=== PATIENT | female | born 1945 | race Caucasian/White ===

== ENCOUNTER 2016-05-17 12:47 | Emergency (ER) | payer MEDICARE, OTHER ==
[~2016-05-17 12:47] MED LIST: ASPIRIN CHEWABL81 MG PO; CALCIUM CARBON600 MG PO; CARAFATE1 GM PO; CERTAGEN1 EACH PO; DIGITEK125 MCG PO; FOLIC ACID1 MG PO; IMDUR 30MG TABL30 MG PO; KLONOPIN0.5 MG PO; LEXAPRO20 MG PO; LIPITOR40 MG PO; LOPRESSOR25 MG PO; LOTREL 10-40 M1 EACH PO; LOVAZA1 GM PO; MEDROL4 M2 PO; MOVANTIK25 MG PO; NITROSTAT0.4 MG PO; OXYCONTIN30 MG PO; PERCOCET 10/321 EACH PO; PERI-COLACE TA1 EACH PO; PRILOSEC20 MG PO; REGLAN5 MG PO; RHEUMATREX2.5 MG PO; XARELTO20 MG PO
[2016-05-17 15:03] LABS: BASOPHIL 0.2 % (0-2); EOSINOPHIL 0.7 % (0-7); HCT 41.9 % (37.0-47.0); HGB 14.5 g/dl (12.5-16.0); LYMPHOCYTE 23.3 % (15-48); MCHC 34.6 g/dL (32.0-36.0); MCV 98.4 fL (78.0-100.0); MONOCYTE 9.2 % (0-12); MPV 9.6 fL (6.0-9.5); NEUTROPHIL 66.6 % (41-80); PLT 326 K/uL (150-400); RBC 4.26 M/uL (4.20-5.40); RDW 12.7 % (11.5-14.0)
[2016-05-17 15:29] LABS: POTASSIUM 4.5 mmol/L (3.5-5.1)
[2016-05-17 16:32] LABS: AMYLASE 58 U/L (28-100); LIPASE 30 U/L (13-60)
[2016-05-17 18:19] LABS: BILIRUBIN NEGATIVE (NEGATIVE); BLOOD NEGATIVE Ery/uL (NEGATIVE); CLARITY CLEAR (CLEAR); COLOR YELLOW (YELLOW); GLUCOSE (U) TRACE mg/dL (NORMAL); KETONE (U) NEGATIVE (NEGATIVE); LEUKOCYTES NEGATIVE Leu/uL (NEGATIVE); NITRITE NEGATIVE (NEGATIVE); PROTEIN NEGATIVE (NEGATIVE); SPECIFIC GRAVITY 1.015 (1.001-1.030); UROBILINOGEN 0.2 mg/dL (0.2-1.0); pH 7.5 (5.0-9.0)
== END 2016-05-17 19:19 | disposition home or self-care (01) ==
LOC: FER 12:47
PROVIDERS: Internal Medicine; Nurse Practitioner Family
DX: R10.9 Unspecified abdominal pain (principal); R11.2 Nausea with vomiting, unspecified; R19.7 Diarrhea, unspecified; I25.2 Old myocardial infarction; M41.9 Scoliosis, unspecified; M06.9 Rheumatoid arthritis, unspecified; F41.9 Anxiety disorder, unspecified; F32.9 Major depressive disorder, single episode, unspecified; Z87.891 Personal history of nicotine dependence; Z88.7 Allergy status to serum and vaccine; Z90.49 Acquired absence of other specified parts of digestive tract
CPT/HCPCS: 36415; 74000; 80048; 81003; 82150; 83690; 85025; 87339; J1170; J2405; Q9967

== ENCOUNTER 2020-03-31 11:44 | Emergency (ER) | payer MEDICARE, OTHER ==
[~2020-03-31 11:44] MED LIST changes: +CELEXA 40MG TAB40 MG PO; +CELEXA40 MG PO; +CENTRUM SILVER1 EAC1 PO; +GLIMEPIRIDE PO; +GLIMEPIRIDE4 MG PO; +HUMALOG; +IMODIUM2 MG PO; +LEFLUNOMIDE20 MG PO; +LOMOTIL1 EACH PO; +METFORMIN HCL500 MG PO; +NITROQUIK SL0.4 MG SL; +OXYCONTIN 10MG10 MG PO; +OXYCONTIN10 MG PO; -PERI-COLACE TA1 EACH PO; +PREDNISONE5 MG PO; +TOPROL XL 50 MG50 MG PO; +TRESIBA FL100 UNIT/1 SC; +TRESIVA SC; +XARELTO10 MG PO; +[UNRECOGNIZED DRUG - REMARK] PO
[2020-03-31 13:37] LABS: BASOPHIL 0.9 % (0-2); EOSINOPHIL 3.6 % (0-7); HCT 39.5 % (37.0-47.0); HGB 13.2 g/dl (12.5-16.0); LYMPHOCYTE 29.9 % (15-48); MCH 31.9 pg (25.0-31.0); MCHC 33.4 g/dL (32.0-36.0); MCV 95.4 fL (78.0-100.0); MONOCYTE 14.8 % (0-12); MPV 11.1 fL (6.0-9.5); NEUTROPHIL 50.5 % (41-80); NRBC 0; PLT 302 K/uL (150-400); RBC 4.14 M/uL (4.20-5.40); RDW 13.5 % (11.5-14.0); WBC 6.4 K/uL (4.0-10.5)
[2020-03-31 13:46] LABS: INR 1.57 (0.9-1.2); PROTHROMBIN TIME 17.8 SECONDS (11.4-13.6); PTT 26.2 SECONDS (22.2-34.7)
[2020-03-31 14:27] LABS: BILIRUBIN NEGATIVE (NEGATIVE); BLOOD NEGATIVE Ery/uL (NEGATIVE); CLARITY CLEAR (CLEAR); COLOR YELLOW (YELLOW); GLUCOSE (U) NORMAL (NORMAL); LEUKOCYTES NEGATIVE Leu/uL (NEGATIVE); NITRITE POSITIVE (NEGATIVE); PROTEIN NEGATIVE (NEGATIVE); SPECIFIC GRAVITY >=1.030 (1.001-1.030); UROBILINOGEN 0.2 mg/dL (0.2-1.0)
[2020-03-31 14:35] LABS: BACTERIA 3+; URINARY WBC RARE
[2020-03-31 15:48] LABS: BILIRUBIN - TOTAL 0.8 mg/dL (0.2-1.0); BUN/CREAT RATIO (CALC) 11.6 RATIO; CREATININE 1.38 mg/dL (0.51-0.95); GLOBULIN (CALCULATION) 3.3 g/dL; POTASSIUM 4.1 mmol/L (3.5-5.1); TOTAL PROTEIN 6.3 g/dL (6.4-8.2)
[2020-03-31 15:53] LABS: PRO-BNP 390 pg/mL (<125)
[2020-03-31] MEDS ORDERED: ONDANSETRON ODT4 MG PO (16:04)
[2020-03-31] MEDS ORDERED: CIPRO500 MG PO (16:04)
== END 2020-03-31 16:45 | disposition home or self-care (01) ==
LOC: FER 11:44
PROVIDERS: Emergency Medicine
DX: N39.0 Urinary tract infection, site not specified (principal); I12.9 Hypertensive chronic kidney disease with stage 1 through stage 4 chronic kidney disease, or unspecified chronic kidney disease; E11.22 Type 2 diabetes mellitus with diabetic chronic kidney disease; N18.9 Chronic kidney disease, unspecified; I25.2 Old myocardial infarction; E11.9 Type 2 diabetes mellitus without complications; Z86.73 Personal history of transient ischemic attack (TIA), and cerebral infarction without residual deficits; Z86.718 Personal history of other venous thrombosis and embolism; Z86.711 Personal history of pulmonary embolism; Z90.49 Acquired absence of other specified parts of digestive tract; Z79.01 Long term (current) use of anticoagulants; Z88.7 Allergy status to serum and vaccine; Z20.822 Contact with and (suspected) exposure to COVID-19
CPT/HCPCS: 36415; 36600; 71045; 80053; 81001; 82803; 83880; 84484; 85025; 85610; 85730; 87076; 87088; 87186; 93005; J0696; U0002

== ENCOUNTER 2020-12-08 13:24 | Inpatient (IN) | payer MEDICARE, OTHER ==
[~2020-12-08] VITALS: Ht 165.1 cm; Wt 88.1 kg
[~2020-12-08 13:24] MED LIST changes: +CIPRO500 MG PO; +ONDANSETRON ODT4 MG PO
[2020-12-08 13:52] LABS: BASOPHIL 0.5 % (0-2); HCT 49.2 % (37.0-47.0); HGB 15.4 g/dl (12.5-16.0); LYMPHOCYTE 32.5 % (15-48); MCHC 31.3 g/dL (32.0-36.0); MCV 102.3 fL (78.0-100.0); MPV 10.5 fL (6.0-9.5); NEUTROPHIL 56.8 % (41-80); NRBC 0; PLT 192 K/uL (150-400); RBC 4.81 M/uL (4.20-5.40); RDW 13.5 % (11.5-14.0); WBC 12.9 K/uL (4.0-10.5)
[2020-12-08 15:06] LABS: BILIRUBIN NEGATIVE (NEGATIVE); BLOOD 1+ Ery/uL (NEGATIVE); CLARITY CLOUDY (CLEAR); COLOR YELLOW (YELLOW); GLUCOSE (U) NORMAL (NORMAL); LEUKOCYTES 2+ Leu/uL (NEGATIVE); NITRITE POSITIVE (NEGATIVE); PROTEIN 2+ mg/dL (NEGATIVE); SPECIFIC GRAVITY 1.025 (1.001-1.030); UROBILINOGEN 0.2 mg/dL (0.2-1.0)
[2020-12-08 15:13] LABS: BACTERIA 3+; URINARY WBC TNTC
[2020-12-08 15:45] LABS: ALBUMIN 3.1 g/dL (3.4-5.0); BUN/CREAT RATIO (CALC) 12.5 RATIO; CREATININE 1.44 mg/dL (0.51-0.95); GLOBULIN (CALCULATION) 3.2 g/dL; POTASSIUM 4.3 mmol/L (3.5-5.1); TOTAL PROTEIN 6.3 g/dL (6.4-8.2)
[2020-12-08 16:02] LABS: LACTIC ACID 8.2 mmol/L (0.4-1.9)
[2020-12-08 16:03] LABS: CORONAVIRUS 2019 SARS-COV-2 NEGATIVE (NEGATIVE); INFLUENZA A NAA NEGATIVE (NEGATIVE)
[2020-12-08 19:15] LABS: MAGNESIUM 1.3 mg/dL (1.8-2.4)
[2020-12-09 07:46] LABS: ALBUMIN 2.6 g/dL (3.4-5.0); BASOPHIL 0.1 % (0-2); BILIRUBIN - TOTAL 0.6 mg/dL (0.2-1.0); BUN/CREAT RATIO (CALC) 15.5 RATIO; CREATININE 1.42 mg/dL (0.51-0.95); EOSINOPHIL 0 % (0-7); GLOBULIN (CALCULATION) 2.9 g/dL; HCT 33.5 % (37.0-47.0); HGB 10.9 g/dl (12.5-16.0); LYMPHOCYTE 12.7 % (15-48); MAGNESIUM 1.7 mg/dL (1.8-2.4); MCH 31.9 pg (25.0-31.0); MCHC 32.5 g/dL (32.0-36.0); MONOCYTE 7.7 % (0-12); MPV 9.9 fL (6.0-9.5); NRBC 0; PLT 200 K/uL (150-400); POTASSIUM 5.3 mmol/L (3.5-5.1); RBC 3.42 M/uL (4.20-5.40); RDW 13.6 % (11.5-14.0); TOTAL PROTEIN 5.5 g/dL (6.4-8.2); WBC 10.8 K/uL (4.0-10.5)
[2020-12-09 09:56] LABS: BUN/CREAT RATIO (CALC) 15.7 RATIO; CREATININE 1.4 mg/dL (0.51-0.95); MAGNESIUM 1.6 mg/dL (1.8-2.4); POTASSIUM 5.5 mmol/L (3.5-5.1)
[2020-12-09 13:19] LABS: BUN/CREAT RATIO (CALC) 15.9 RATIO; CREATININE 1.51 mg/dL (0.51-0.95); POTASSIUM 5.7 mmol/L (3.5-5.1)
[2020-12-09 13:26] LABS: LACTIC ACID 4.6 mmol/L (0.4-1.9)
[2020-12-09 19:54] LABS: CREATININE 1.67 mg/dL (0.51-0.95); POTASSIUM 5.1 mmol/L (3.5-5.1)
[2020-12-10 06:32] LABS: BASOPHIL 0.3 % (0-2); EOSINOPHIL 1.1 % (0-7); HCT 32.8 % (37.0-47.0); HGB 10.6 g/dl (12.5-16.0); MCH 32.1 pg (25.0-31.0); MCHC 32.3 g/dL (32.0-36.0); MCV 99.4 fL (78.0-100.0); MONOCYTE 9.1 % (0-12); NEUTROPHIL 66.9 % (41-80); NRBC 0; PLT 187 K/uL (150-400); RDW 13.7 % (11.5-14.0)
[2020-12-10 07:07] LABS: ALBUMIN 2.6 g/dL (3.4-5.0); BILIRUBIN - TOTAL 0.3 mg/dL (0.2-1.0); BUN/CREAT RATIO (CALC) 19.5 RATIO; CREATININE 1.59 mg/dL (0.51-0.95); GLOBULIN (CALCULATION) 2.6 g/dL; MAGNESIUM 1.6 mg/dL (1.8-2.4); POTASSIUM 4.7 mmol/L (3.5-5.1); TOTAL PROTEIN 5.2 g/dL (6.4-8.2)
--- NOTE | 2020-12-10 13:50 | NUR ---
12/10/20 Ms. Chi lives at home with her spouse. Her daughter assist with care. Ms. Chi has a ivis-walker, motorized wc, ramp, 3in1, and s. bench. - A referral was made to [facility]. - Please notify [facility] at [phone] if patient discharges over the weekend.
[2020-12-11 06:23] LABS: BASOPHIL 0.6 % (0-2); HCT 36.1 % (37.0-47.0); HGB 11.8 g/dl (12.5-16.0); LYMPHOCYTE 30.5 % (15-48); MCH 32.2 pg (25.0-31.0); MCHC 32.7 g/dL (32.0-36.0); MCV 98.4 fL (78.0-100.0); MONOCYTE 10.7 % (0-12); MPV 10.1 fL (6.0-9.5); NEUTROPHIL 53.8 % (41-80); NRBC 0; PLT 212 K/uL (150-400); RBC 3.67 M/uL (4.20-5.40); RDW 13.7 % (11.5-14.0)
[2020-12-11 06:49] LABS: ALBUMIN 2.7 g/dL (3.4-5.0); BILIRUBIN - TOTAL 0.4 mg/dL (0.2-1.0); BUN/CREAT RATIO (CALC) 22.5 RATIO; CREATININE 1.38 mg/dL (0.51-0.95); GLOBULIN (CALCULATION) 3.2 g/dL; MAGNESIUM 1.5 mg/dL (1.8-2.4); POTASSIUM 4.1 mmol/L (3.5-5.1); TOTAL PROTEIN 5.9 g/dL (6.4-8.2)
[2020-12-12 04:46] LABS: BASOPHIL 0.7 % (0-2); EOSINOPHIL 3.5 % (0-7); HCT 37.8 % (37.0-47.0); HGB 12.4 g/dl (12.5-16.0); LYMPHOCYTE 31.9 % (15-48); MCHC 32.8 g/dL (32.0-36.0); MCV 97.4 fL (78.0-100.0); MONOCYTE 10.1 % (0-12); MPV 10.3 fL (6.0-9.5); NEUTROPHIL 53.1 % (41-80); NRBC 0; PLT 245 K/uL (150-400); RBC 3.88 M/uL (4.20-5.40); RDW 13.6 % (11.5-14.0); WBC 9.9 K/uL (4.0-10.5)
[2020-12-12 05:10] LABS: ALBUMIN 2.7 g/dL (3.4-5.0); BILIRUBIN - TOTAL 0.5 mg/dL (0.2-1.0); BUN/CREAT RATIO (CALC) 24.1 RATIO; CREATININE 1.37 mg/dL (0.51-0.95); GLOBULIN (CALCULATION) 3.6 g/dL; MAGNESIUM 1.7 mg/dL (1.8-2.4); POTASSIUM 5.4 mmol/L (3.5-5.1); TOTAL PROTEIN 6.3 g/dL (6.4-8.2)
[2020-12-12 14:55] LABS: BUN/CREAT RATIO (CALC) 21.6 RATIO; CREATININE 1.53 mg/dL (0.51-0.95); POTASSIUM 4.5 mmol/L (3.5-5.1)
[2020-12-13 07:23] LABS: BASOPHIL 0.7 % (0-2); EOSINOPHIL 3.2 % (0-7); HCT 40.2 % (37.0-47.0); HGB 13.2 g/dl (12.5-16.0); INR 1.38 (0.9-1.2); LYMPHOCYTE 34.6 % (15-48); MCH 31.8 pg (25.0-31.0); MCHC 32.8 g/dL (32.0-36.0); MCV 96.9 fL (78.0-100.0); MONOCYTE 9.5 % (0-12); MPV 10.2 fL (6.0-9.5); NEUTROPHIL 51.7 % (41-80); NRBC 0; PLT 273 K/uL (150-400); PROTHROMBIN TIME 16.3 SECONDS (11.8-13.4); RBC 4.15 M/uL (4.20-5.40); RDW 13.5 % (11.5-14.0); WBC 11.5 K/uL (4.0-10.5)
[2020-12-13 07:37] LABS: ALBUMIN 3.1 g/dL (3.4-5.0); BILIRUBIN - TOTAL 0.7 mg/dL (0.2-1.0); BUN/CREAT RATIO (CALC) 21.6 RATIO; C-REACTIVE PROTEIN 1.2 mg/dL (<=0.90); CREATININE 1.39 mg/dL (0.51-0.95); GLOBULIN (CALCULATION) 3.2 g/dL; POTASSIUM 4.4 mmol/L (3.5-5.1); TOTAL PROTEIN 6.3 g/dL (6.4-8.2)
[2020-12-13] MEDS ORDERED: MAG-OXIDE 400M400 MG PO (11:54)
[2020-12-13] MEDS ORDERED: ELIQUIS5 MG PO (11:54)
[2020-12-13] MEDS ORDERED: ZYVOX600 MG PO (11:54)
--- NOTE | 2020-12-13 12:11 | NUR ---
12/13/20 [facility] was notified of patient's discharge. Pt is no longer requiring 02. - Report given to VIDYA Preston RN.
== END 2020-12-13 12:45 | disposition home health service (06) | DRG 871 ==
LOC: FER 13:24 → FTCU 18:51
PROVIDERS: Internal Medicine; Internal Medicine Cardiovascular Disease; ADMIT Family Medicine
DX: A40.8 Other streptococcal sepsis (principal); J96.01 Acute respiratory failure with hypoxia; I50.33 Acute on chronic diastolic (congestive) heart failure; N39.0 Urinary tract infection, site not specified; I13.0 Hypertensive heart and chronic kidney disease with heart failure and stage 1 through stage 4 chronic kidney disease, or unspecified chronic kidney disease; I69.351 Hemiplegia and hemiparesis following cerebral infarction affecting right dominant side; G93.40 Encephalopathy, unspecified; R65.20 Severe sepsis without septic shock; Z20.822 Contact with and (suspected) exposure to COVID-19; E11.22 Type 2 diabetes mellitus with diabetic chronic kidney disease; N18.30 Chronic kidney disease, stage 3 unspecified; E11.65 Type 2 diabetes mellitus with hyperglycemia; M06.9 Rheumatoid arthritis, unspecified; E78.5 Hyperlipidemia, unspecified; I48.91 Unspecified atrial fibrillation; I48.0 Paroxysmal atrial fibrillation; E87.5 Hyperkalemia; E83.42 Hypomagnesemia; I95.9 Hypotension, unspecified; Z79.01 Long term (current) use of anticoagulants; Z79.84 Long term (current) use of oral hypoglycemic drugs; Z79.899 Other long term (current) drug therapy; I25.2 Old myocardial infarction; Z86.711 Personal history of pulmonary embolism; Z90.89 Acquired absence of other organs; Z90.710 Acquired absence of both cervix and uterus; Z90.49 Acquired absence of other specified parts of digestive tract; Z93.2 Ileostomy status; I69.322 Dysarthria following cerebral infarction
CPT/HCPCS: 36415; 36600; 70450; 71045; 80048; 80053; 80162; 80202; 81001; 82009; 82803; 82962; 83605; 83690; 83735; 83880; 84145; 84443; 84484; 85025; 85379; 85610; 86140; 87040; 87076; 87077; 87088; 87186; 93005; 94010; 97110; 97163; 97166; 97530; 97530-GP; 97535; J0282; J0696; J1100; J1815; J1940; J3370; J3475; J7030; J7050; J7060; J7120; J7512; U0002

== ENCOUNTER 2021-03-05 14:47 | Emergency (ER) | payer MEDICARE, OTHER ==
[~2021-03-05 14:47] MED LIST changes: +ELIQUIS5 MG PO; +MAG-OXIDE 400M400 MG PO; +ZYVOX600 MG PO
[2021-03-05 15:35] LABS: BASOPHIL 0.6 % (0-2); EOSINOPHIL 2.8 % (0-7); HCT 42.2 % (37.0-47.0); HGB 13.7 g/dl (12.5-16.0); MCH 31.4 pg (25.0-31.0); MCHC 32.5 g/dL (32.0-36.0); MCV 96.8 fL (78.0-100.0); MONOCYTE 7.9 % (0-12); MPV 10.3 fL (6.0-9.5); NEUTROPHIL 57.2 % (41-80); NRBC 0; PLT 315 K/uL (150-400); RBC 4.36 M/uL (4.20-5.40); RDW 14.1 % (11.5-14.0); WBC 6.3 K/uL (4.0-10.5)
[2021-03-05 15:54] LABS: CREATININE 7.2 mg/dL (0.51-0.95); POTASSIUM 5.4 mmol/L (3.5-5.1)
[2021-03-05 19:19] LABS: CORONAVIRUS 2019 SARS-COV-2 NEGATIVE (NEGATIVE); INFLUENZA A NAA NEGATIVE (NEGATIVE)
[2021-03-05 22:08] LABS: BILIRUBIN NEGATIVE (NEGATIVE); BLOOD TRACE-INTACT Ery/uL (NEGATIVE); CLARITY CLEAR (CLEAR); COLOR YELLOW (YELLOW); GLUCOSE (U) TRACE mg/dL (NORMAL); LEUKOCYTES 2+ Leu/uL (NEGATIVE); NITRITE NEGATIVE (NEGATIVE); PROTEIN NEGATIVE (NEGATIVE); SPECIFIC GRAVITY 1.015 (1.001-1.030); UROBILINOGEN 0.2 mg/dL (0.2-1.0); pH 5.5 (5.0-9.0)
[2021-03-05 22:16] LABS: BACTERIA 2+; URINARY WBC TNTC; YEAST PRESENT
[2021-03-06 02:33] LABS: BUN/CREAT RATIO (CALC) 11.8 RATIO; CREATININE 6.2 mg/dL (0.51-0.95); POTASSIUM 4.6 mmol/L (3.5-5.1)
== END 2021-03-06 03:40 | disposition other institution (70) ==
LOC: FER 14:47
PROVIDERS: Emergency Medicine Emergency Medical Services; Internal Medicine
DX: N17.9 Acute kidney failure, unspecified (principal); I12.9 Hypertensive chronic kidney disease with stage 1 through stage 4 chronic kidney disease, or unspecified chronic kidney disease; E11.22 Type 2 diabetes mellitus with diabetic chronic kidney disease; N18.30 Chronic kidney disease, stage 3 unspecified; E11.649 Type 2 diabetes mellitus with hypoglycemia without coma; E87.5 Hyperkalemia; N30.00 Acute cystitis without hematuria; Z20.822 Contact with and (suspected) exposure to COVID-19; Z88.7 Allergy status to serum and vaccine
CPT/HCPCS: 36415; 71045; 71250; 80048; 81001; 83605; 84145; 84484; 85025; 87088; 93005; J0696; J7030; U0002

== ENCOUNTER 2021-09-05 05:39 | Emergency (ER) | payer MEDICARE, OTHER ==
[2021-09-05 06:40] LABS: BASOPHIL 1.1 % (0-2); EOSINOPHIL 3.4 % (0-7); HCT 46.3 % (37.0-47.0); HGB 14.9 g/dl (12.5-16.0); LYMPHOCYTE 36.3 % (15-48); MCH 30.9 pg (25.0-31.0); MCHC 32.2 g/dL (32.0-36.0); MCV 96.1 fL (78.0-100.0); MONOCYTE 11.5 % (0-12); MPV 9.9 fL (6.0-9.5); NEUTROPHIL 47.2 % (41-80); NRBC 0; PLT 257 K/uL (150-400); RBC 4.82 M/uL (4.20-5.40); RDW 13.2 % (11.5-14.0); WBC 6.5 K/uL (4.0-10.5)
[2021-09-05 06:44] LABS: INR 1.3 (0.9-1.2); PROTHROMBIN TIME 15.8 SECONDS (11.9-13.9); PTT 28.9 SECONDS (24.9-34.6)
[2021-09-05 07:14] LABS: ALBUMIN 3.7 g/dL (3.4-5.0); BILIRUBIN - TOTAL 0.8 mg/dL (0.2-1.0); BUN/CREAT RATIO (CALC) 17.6 RATIO; CREATININE 1.7 mg/dL (0.51-0.95); GLOBULIN (CALCULATION) 3.3 g/dL; POTASSIUM 4.3 mmol/L (3.5-5.1)
[2021-09-05 07:51] LABS: CORONAVIRUS 2019 SARS-COV-2 NEGATIVE (NEGATIVE); INFLUENZA A NAA NEGATIVE (NEGATIVE)
[2021-09-05 08:42] LABS: BILIRUBIN NEGATIVE (NEGATIVE); BLOOD TRACE-INTACT Ery/uL (NEGATIVE); COLOR YELLOW (YELLOW); GLUCOSE (U) NORMAL (NORMAL); LEUKOCYTES NEGATIVE Leu/uL (NEGATIVE); NITRITE NEGATIVE (NEGATIVE); PROTEIN NEGATIVE (NEGATIVE); SPECIFIC GRAVITY >=1.030 (1.001-1.030); UROBILINOGEN 0.2 mg/dL (0.2-1.0); pH 5.5 (5.0-9.0)
[2021-09-05 08:47] LABS: CLARITY HAZY (CLEAR)
[2021-09-05 08:54] LABS: SQUAMOUS EPITHELIAL CELLS >50
[2021-09-05 08:56] LABS: BACTERIA 3+
[2021-09-05 09:00] LABS: URINARY RBC RARE
[2021-09-05] MEDS ORDERED: NORCO 5-325 TA1 EACH PO (09:05)
== END 2021-09-05 09:40 | disposition home or self-care (01) ==
LOC: FER 05:39
PROVIDERS: Internal Medicine
DX: G56.81 Other specified mononeuropathies of right upper limb (principal); I12.9 Hypertensive chronic kidney disease with stage 1 through stage 4 chronic kidney disease, or unspecified chronic kidney disease; E11.22 Type 2 diabetes mellitus with diabetic chronic kidney disease; N18.9 Chronic kidney disease, unspecified; I48.91 Unspecified atrial fibrillation; Z20.822 Contact with and (suspected) exposure to COVID-19; Z79.01 Long term (current) use of anticoagulants; Z86.73 Personal history of transient ischemic attack (TIA), and cerebral infarction without residual deficits; Z87.891 Personal history of nicotine dependence; Z88.7 Allergy status to serum and vaccine; Z79.899 Other long term (current) drug therapy
CPT/HCPCS: 36415; 71250; 80053; 81001; 83690; 84145; 84484; 85025; 85610; 85730; 93005; J2270; J2405; U0002